=== PATIENT | female | born 1950 | race Hispanic/Latino ===

== ENCOUNTER 2023-10-22 10:22 | Outpatient (RCR) | payer MEDICARE | END 2023-11-20 | LOC: PT 10:22 | PROVIDERS: ATTEND Specialist | DX: M17.12 Unilateral primary osteoarthritis, left knee (principal); M62.81 Muscle weakness (generalized); M25.562 Pain in left knee; R26.89 Other abnormalities of gait and mobility ==

== ENCOUNTER 2024-01-01 10:48 | Outpatient (RCR) | payer MEDICARE | END 2024-01-20 | LOC: PT 10:48 | PROVIDERS: ATTEND Specialist | DX: M17.12 Unilateral primary osteoarthritis, left knee (principal); M62.81 Muscle weakness (generalized); M25.562 Pain in left knee; R26.89 Other abnormalities of gait and mobility ==

== ENCOUNTER 2024-01-21 10:53 | Outpatient (RCR) | payer MEDICARE | END 2024-02-20 | LOC: PT 10:53 | PROVIDERS: ATTEND Specialist | DX: M17.12 Unilateral primary osteoarthritis, left knee (principal); M25.562 Pain in left knee; M62.18 Other rupture of muscle (nontraumatic), other site; R26.89 Other abnormalities of gait and mobility ==